=== PATIENT | female | born 1955 | race Caucasian/White ===

== ENCOUNTER 2016-08-17 07:10 | Inpatient (IN) | payer OTHER ==
[2016-08-11 09:07] VITALS: BMI 36.0
--- NOTE | 2016-08-11 09:32 | PAT Medication Instructions ---
Service Date Aug 11, 2016. 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
--- NOTE | 2016-08-11 10:07 | DIAGNOSTIC IMAGING REPORT ---
CHEST PREADMISSION(PA/LAT) CLINICAL HISTORY: PAT preoperative evaluation COMPARISON STUDY: No previous studies for comparison. FINDINGS: The bones soft tissues and hemidiaphragms are normal. The cardiomediastinal silhouette is normal. The lungs are clear. The pulmonary vasculature is normal. IMPRESSION: Negative chest. Electronically signed by: Karl Williamson M.D. 08/11/2016 10:05 AM Dictated Date/Time: 08/11/2016 10:04 AM
[2016-08-11 10:11] LABS: BASO % 0.7 %; BASO ABS # 0.04 K/uL (0-0.2); COMPLETE YES; EOS % 1.5 %; HEMATOCRIT 43.3 % (37-47); IG% 0.2 %; LYMPH % 34.2 %; LYMPH ABS # 1.87 K/uL (1.2-3.4); MEAN CELL VOLUME 89.5 fL (80-100); MEAN CORPUSCULAR HGB CONC 33.5 g/dl (32-36); MEAN PLATELET VOLUME 10.1 fL (7.4-10.4); MONO % 6.6 %; NEUT % 56.8 %; PLATELET COUNT 263 K/uL (130-400); RED BLOOD COUNT 4.84 M/uL (4.2-5.4); WHITE BLOOD COUNT 5.47 K/uL (4.8-10.8)
[2016-08-11 10:19] LABS: URINE APPEARANCE CLOUDY (CLEAR); URINE BILIRUBIN NEG (NEG); URINE COLOR DK YELLOW; URINE EPITHELIAL CELL AUTO >30 /lpf (0-5); URINE NITRITE NEG (NEG); URINE SPECIFIC GRAVITY 1.023 (1.000-1.030); UROBILINOGEN NEG (NEG)
[2016-08-11 10:22] LABS: MANUAL MICROSCOPIC REQUIRED? NO; REVIEW REQ? NO
[2016-08-11 10:27] LABS: ESTIMATED AVERAGE GLUCOSE 126 mg/dl; HA1C FLAG Normal (Normal)
[2016-08-11 10:31] LABS: PROTHROMBIN TIME (PATIENT) 11.2 SECONDS (9.0-12.0)
[2016-08-11 11:27] LABS: BUN/CREATININE RATIO 13.4 (10-20); CREATININE 0.96 mg/dl (0.60-1.20); POTASSIUM 3.5 mmol/L (3.5-5.1)
[2016-08-11 11:32] LABS: CALCIUM 9.3 mg/dl (8.5-10.1)
--- NOTE | 2016-08-16 10:34 | HISTORY & PHYSICAL EXAMINATION ---
DATE OF ADMISSION: 08/17/2016 CHIEF COMPLAINT: Right knee pain. HISTORY OF PRESENT ILLNESS: The patient is a 61-year-old female seen and evaluated in our office with end-stage right knee osteoarthritis. She has pain and disability with activities of daily living. She has pain with prolonged weightbearing and standing activities. She has difficulty with any kneeling, bending, or squatting activities. Due to ongoing pain and disability, she now desires to proceed with right total knee arthroplasty. PAST MEDICAL HISTORY: Hypertension and hyperlipidemia. PAST SURGICAL HISTORY: x3, carpal tunnel bilaterally, hysterectomy, bladder surgery, tonsils and adenoids. MEDICATIONS: Atorvastatin, calcium 20 mg daily, citalopram hydrobromide 10 mg daily, and losartan potassium daily/HCTZ 50/12.5 once daily. ALLERGIES: PENICILLIN AND WILFRID INHIBITORS. SOCIAL HISTORY AND REVIEW OF SYSTEMS: Noncontributory. PHYSICAL EXAMINATION: GENERAL: Well-nourished and well-developed female who appears her stated age. HEENT: Normocephalic and atraumatic. Extraocular movements intact. Oropharynx is pink and moist. NECK: Supple without adenopathy. LUNGS: Clear to auscultation bilaterally. HEART: Regular rate and rhythm. ABDOMEN: Soft, nontender, and nondistended. EXTREMITIES: The upper extremities are within normal limits. The right knee has a varus alignment. She complains primarily of medial compartment pain. Her range of motion is approximately 0-120 degrees. X-RAYS: X-rays were reviewed. She has a varus aligned knee. She has [id number] arthritis of the medial compartment with complete loss of the joint space. There is evidence of subchondral sclerosis. She also has moderate degenerative changes about the patellofemoral joint with large osteophytes. ASSESSMENT: Right knee degenerative joint disease. PLAN: Risks versus benefits were discussed. Consent was obtained. The patient's primary care physician is Dr. Joey Milian. We will proceed with right total knee arthroplasty upon preoperative workup and medical clearance.
[2016-08-17] VITALS (10 sets, daily range): BP systolic 102–142; BP diastolic 65–87; PULSE 68–79; TEMP 36.2–36.8; O2SAT 95–99; Ht 160 cm; Wt 93.9 kg
[~2016-08-17] VITALS: Ht 160 cm; Wt 93.9 kg
--- NOTE | 2016-08-17 07:09 | History & Physical Bridge Note ---
H&P Re-Evaluation Bridge Note: I have examined the patient, reviewed the History & Physical and in the interval since the performance of the History & Physical I have noted the following changes of clinical significance: No changes noted
[~2016-08-17 07:10] MED LIST: ACETAMINOPHEN 500 MG TAB PO SCH; ATOR-22 PO; BUPIVACAINE 0.25% 30 ML VIAL ONE; BUPIVACAINE 0.5 % 5 MG/1 ML PF 10ML VIAL ONE; CITA10TA8 PO; CeleBREX 200 MG CAP PO SCH; DEXAMETHASONE 4 MG TAB PO SCH; FAMOTIDINE 20 MG TAB PO SCH; GABAPENTIN 300 MG CAP PO SCH; LACTATED RINGER'S 1000ML 1,000 ML IV SCH; LACTATED RINGER'S 1000ML 500 ML IV ONE; LIDO4PAD3 TOP; LOSA100T2 PO; MENT4GEL TOP; METOCLOPRAMIDE HCL 10 MG TAB PO SCH; ROPIVACAINE 5MG/ML 30 ML 150 MG, BUPIVACAINE/EPINEPHR 0.5% MPF 30 ML, KETOROLAC TROMETH... INFIL SCH; TRANEXAMIC ACID INJ 1,000 MG in SODIUM CHLORIDE 0.9% 100ML 100 ML IV SCH
[2016-08-17] MEDS ORDERED: NURSING VERBAL MED ORDER STA (08:08)
[2016-08-17] MEDS ORDERED: CLINDAMYCIN 600 MG/54 ML D5W IV ONE (08:09)
[2016-08-17] MEDS ORDERED: MIDAZOLAM HCL 1 MG/ML 2ML VIAL ONE ×2 (08:18)
[2016-08-17] MEDS ORDERED: FENTANYL CITRATE INJ 50 MCG/1 ML 2 ML VIAL ONE (08:18)
[2016-08-17] MEDS ORDERED: POVIDONE-IODINE OP SOLN 30 ML BTL ONE (08:47)
[2016-08-17] MEDS ORDERED: BACITRACIN 50000 UNIT VIAL ONE (08:47)
[2016-08-17] MEDS ORDERED: ORTHO JOINT ANESTHETIC ONE (08:47)
[2016-08-17] MEDS ORDERED: LACTATED RINGER'S 1000ML 1,000 ML IV PRN (08:53)
[2016-08-17] MEDS ORDERED: FENTANYL CITRATE INJ 50 MCG/1 ML 2 ML VIAL IV PRN (09:00)
[2016-08-17] MEDS ORDERED: ONDANSETRON INJ 2 MG/ML 2 ML VIAL IV PRN ×2 (09:00→11:00)
[2016-08-17] MEDS ORDERED: PROPOFOL IV EMULSION 10 MG/ML 20 ML VIAL IV ONE (09:41)
[2016-08-17] MEDS ORDERED: LIDOCAINE HCL 2% 2 ML VIAL (20MG/ML) ONE (09:41)
--- NOTE | 2016-08-17 10:15 | [facility] Post Operative Brief Note ---
Immediate Operative Summary Operative Date Aug 17, 2016. Pre-Operative Diagnosis Left Knee Degenerative Joint Disease Post-Operative Diagnosis Same as preop Procedure(s) Performed Right Total Knee Arthroplasty Surgeon Dr. Pan Ophthalmic Photographer Surgeon(s) Raj Cameron PA-C Estimated Blood Loss 10cc Findings oa Specimens A. Right Knee Bone and Tissue Disposition Recovery Room / PACU
[2016-08-17] MEDS ORDERED: MoRPHine SULFATE 2 MG/ML CARP IV PRN ×2 (11:00→13:15)
[2016-08-17] MEDS ORDERED: MAGNESIUM HYDROXIDE SUSP 30 ML UDC PO PRN (11:00)
[2016-08-17] MEDS ORDERED: OXYCODONE HCL IR 5 MG TAB (IMMEDIATE RELEASE) PO PRN (11:00)
[2016-08-17] MEDS ORDERED: ALUMINUM/MAGNESIUM/SIMETH (MAALOX MAX) 30 ML UDC PO PRN (11:00)
[2016-08-17] MEDS ORDERED: ZOLPIDEM TARTRATE 5 MG TAB PO PRN (11:00)
[2016-08-17] MEDS ORDERED: METOCLOPRAMIDE HCL INJ 5 MG/ML 2 ML VIAL IV PRN (11:00)
--- NOTE | 2016-08-17 11:28 | DIAGNOSTIC IMAGING REPORT ---
RIGHT KNEE 1 OR 2 VIEWS ROUTINE CLINICAL HISTORY: Degenerative arthritis COMPARISON: None. DISCUSSION: There are postsurgical changes of a total right knee arthroplasty and patellar resurfacing. No acute fractures are visualized. There is an overlying surgical drain. There is air within soft tissues consistent with history of recent surgery. The tibial spike abuts the inner aspect of the lateral tibial cortex. IMPRESSION: Postsurgical changes of a total right knee arthroplasty. Electronically signed by: Sam Melton M.D. 08/17/2016 11:27 AM Dictated Date/Time: 08/17/2016 11:26 AM
--- NOTE | 2016-08-17 12:28 | Anesthesiology Progress Note ---
Anesthesia Post Op Note Date & Time Aug 17, 2016 at 12:28 Vital Signs Pain Intensity: 0.0 Vital Signs Past 12 Hours Date Time Temp Pulse Resp B/P (MAP) Pulse Ox O2 Delivery O2 Flow Rate FiO2 08/17/16 12:00 98 Nasal Cannula 2.0 08/17/16 12:00 98 Nasal Cannula 2.0 08/17/16 11:50 36.4 78 16 111/79 100 Nasal Cannula 2 08/17/16 11:35 80 16 107/77 100 Nasal Cannula 2 08/17/16 11:25 82 14 111/82 100 Nasal Cannula 2 08/17/16 11:15 75 13 106/75 100 Mask 8 08/17/16 11:05 76 14 98/71 100 Mask 8 08/17/16 10:59 36 83 16 115/77 100 Mask 8 08/17/16 08:11 36.8 68 20 142/87 95 Room Air Notes Mental Status: alert / awake / arousable, participated in evaluation Pt Amnestic to Procedure: Yes Nausea / Vomiting: adequately controlled Pain: adequately controlled Airway Patency, RR, SpO2: stable & adequate BP & HR: stable & adequate Hydration State: stable & adequate Neuraxial Anesthesia: was administered, sensory block is resolving Anesthetic Complications: no major complications apparent Pt did very well.
--- NOTE | 2016-08-17 12:29 | OPERATIVE REPORT ---
DATE OF OPERATION: 08/17/2016 PREOPERATIVE DIAGNOSIS: Osteoarthritis right knee. POSTOPERATIVE DIAGNOSIS: Osteoarthritis right knee. PROCEDURE: Right total knee arthroplasty. SURGEON: Dr. Pan. MUD CAR WORKER: Raj Cameron PA-C ANESTHESIA: Spinal. COMPLICATIONS: None. IMPLANTS: Femoral size 4, tibia size 3, tibial poly 16, and patella size 33. OPERATION AND FINDINGS: Following induction of spinal anesthesia, the patient's right leg was prepped and draped in the usual sterile manner. Limb was exsanguinated with an Esmarch bandage and tourniquet was inflated to 350 mmHg. A longitudinal incision was made anteriorly. Subcutaneous tissue was sharply dissected. Electrocautery was used for hemostasis. Prepatellar bursa was incised and median parapatellar incision was performed. Patella was everted and the knee was flexed. Fat pad was removed to aid in visualization and the anterior and posterior cruciate ligaments were removed. The medial face of the tibia was cleared of soft tissue first with a Bovie and a Cho elevator. This tissue was retracted posteriorly using a blunt Hohmann. A Renteria retractor was used to expose the synovium above on the anterior aspect of the femur and this was removed down to bone. The PSI guide was placed on the distal femur and two pins were placed anteriorly and kept in position and two additional pins were placed distally and removed. The distal femoral cutting block was placed in position and the distal femoral cut was used in the +0 setting. Next, the cutting block was removed and the femoral block was placed in the distal end of the femur. Care was taken to ensure appropriate external rotation and feeler gauge was used to ensure no notching would occur. The femoral block was centered on the distal femur and in the medial and lateral direction and was fixed using two bone screws. The gold pins were then removed. The oscillating saw was used to create the bone cuts and the distal femoral cutting block was removed and the reciprocating saw was used to further trim the femoral cuts as well as a deep in the area for the trochlear groove. Next, posterior condyle remnants were removed. Following this, a meniscal clamp and knife were utilized to remove the anterior portion of both medial and lateral meniscus. The proximal tibia PSI guide was placed into position and the proximal tibial cutting guide was screwed into position. The extra medullary alignment guide was utilized to ensure appropriate alignment. The proximal tibia was cut and the proximal tibial cutting block was removed and this bone fragment was removed. The appropriate guide was used to perform the notch cut on the distal femur and a lamina journalist and a cochlear knife were utilized to finish both medial and lateral meniscectomies to remove any remnants of the posterior or anterior cruciate ligaments. Following this, the distal femoral component was impacted into position and blunt Rossana was used to sublux the tibia anteriorly. The proximal tibia was sized and a 3 tibial tray was chosen as the size to be used. This was put into position and appropriate external rotation and a double check with extramedullary alignment guide was performed. The canal for the tibial stem was prepared first with a 17 mm drill and then the punch and a mallet and the trial tibial poly was placed. A size 16 was chosen the size to be used. It was brought to extension and the patella was prepared with the patellar reamer. A 33 component was chosen the size to be used. The trial component was placed and knee was taken through a full range of motion and there was found to be no lateral subluxation of the tibia. No lateral release was required. The trials were all removed. The final components were obtained and assembled. Cement was mixed. The knee was thoroughly irrigated and the ortho mix was injected about the knee joint. The final components were cemented into position. After thoroughly suctioning and drying the bone ends, all excess cement was removed. The knee was held in extension while the cement hardened. The wound was irrigated and closed over a Hemovac drain. #1 Vicryl was used to close the extensor mechanism. Subcutaneous tissues closed using 0 Dexon. Skin was closed with phoenix. Sterile dressing of Adaptic, 4 x 4s, sterile Webril, and Junior was applied. The patient tolerated the procedure well. Due to the complex nature of the procedure, the entire surgery was performed with the operational assistance of Raj Cameron PA-C. The accountant assistant, under direct supervision, was involved in the actual performance of all aspects of the surgical procedure including hemostasis, tissue retraction and incision, instrument management, patient positioning, and wound closure. I attest to the content of the Intraoperative Record and any orders documented therein. Any exception s are noted below.
[2016-08-17] MEDS ORDERED: MoRPHine SULFATE 10 MG/ML CARP/VIAL IV PRN (13:15)
[2016-08-17] MEDS ORDERED: MoRPHine SULFATE 4 MG/ML 1 ML CARP\\VIAL IV PRN (13:15)
[2016-08-17] MEDS: D5W AND 1/2NSS + 20MEQ KCL 1,000 ML IV SCH ×2 (13:46→23:31)
[2016-08-17] MEDS: ACETAMINOPHEN 500 MG TAB PO SCH ×2 (13:46→21:08)
[2016-08-17] MEDS: FERROUS GLUCONATE 324 MG TAB PO SCH (18:25)
[2016-08-17] MEDS: KETOROLAC TROMETHAMINE 30 MG/ML VIAL IV. SCH ×2 (18:26→23:31)
[2016-08-17] MEDS: CLINDAMYCIN IV 600 MG in DEXTROSE 5% 50ML 50 ML IV SCH (18:43)
[2016-08-17] MEDS: ASPIRIN 81 MG ECTAB PO SCH (20:58)
[2016-08-17] MEDS: DOCUSATE SODIUM 100 MG CAP PO SCH (20:59)
[2016-08-17] MEDS: LOSARTAN POTASSIUM 50 MG TAB PO SCH (21:00)
[2016-08-17] MEDS: ATORVASTATIN 20 MG TAB PO SCH (21:01)
[2016-08-17] MEDS: HYDROCHLOROTHIAZIDE 25 MG TAB PO SCH (21:09)
[2016-08-17] MEDS: CITALOPRAM 20 MG TAB PO SCH (21:09)
[2016-08-17] MEDS: OXYCODONE HCL 10 MG TABCR (OXYCONTIN) PO SCH (21:16)
[2016-08-18] MEDS: CLINDAMYCIN IV 600 MG in DEXTROSE 5% 50ML 50 ML IV SCH (02:08)
[2016-08-18 03:12] VITALS: BP 105/68; PULSE 59; TEMP 36.7; O2SAT 96
[2016-08-18] MEDS: KETOROLAC TROMETHAMINE 30 MG/ML VIAL IV. SCH ×2 (05:35→11:50)
[2016-08-18] MEDS: ACETAMINOPHEN 500 MG TAB PO SCH ×3 (05:35→21:19)
[2016-08-18 06:54] LABS: HEMATOCRIT 32.9 % (37-47); MEAN CELL VOLUME 89.6 fL (80-100); MEAN CORPUSCULAR HEMOGLOBIN 30.5 pg (25-34); MEAN PLATELET VOLUME 10.6 fL (7.4-10.4); PLATELET COUNT 186 K/uL (130-400); RED BLOOD COUNT 3.67 M/uL (4.2-5.4); WHITE BLOOD COUNT 13.59 K/uL (4.8-10.8)
[2016-08-18 06:59] VITALS: BP 106/65; PULSE 69; TEMP 36.6; O2SAT 97
[2016-08-18 07:25] LABS: BUN/CREATININE RATIO 14.7 (10-20); CALCIUM 8.4 mg/dl (8.5-10.1); CREATININE 0.91 mg/dl (0.60-1.20); POTASSIUM 4.3 mmol/L (3.5-5.1)
[2016-08-18] MEDS ORDERED: DEXAMETHASONE INJ 10 MG in SYRINGE 0 ML IV SCH (07:30)
--- NOTE | 2016-08-18 08:02 | Orthopedic Progress Note ---
Orthopedic Progress Note Date of Service Aug 18, 2016. Subjective Post OP Day: 1 Reports: feeling well Objective N/V intact, dressing C/D/I (Hemovac d/c'd), toes mobile Date Time Temp Pulse Resp B/P (MAP) Pulse Ox O2 Delivery O2 Flow Rate FiO2 08/18/16 07:20 Room Air 08/18/16 06:59 36.6 69 19 106/65 (79) 97 Room Air 08/18/16 03:12 36.7 59 16 105/68 (80) 96 Room Air 08/17/16 23:39 Room Air 08/17/16 23:08 36.7 71 18 102/66 (78) 95 Room Air 08/17/16 21:07 79 110/65 (80) 08/17/16 19:41 36.6 79 16 103/69 (80) 95 Room Air 08/17/16 16:00 Room Air 08/17/16 15:27 36.7 71 16 108/69 (82) 96 Room Air 08/17/16 15:00 36.7 71 19 111/73 (86) 96 Nasal Cannula 2.0 08/17/16 14:05 36.2 77 19 103/66 (78) 99 Nasal Cannula 2.0 08/17/16 13:04 36.4 77 19 108/76 (87) 99 Nasal Cannula 2.0 08/17/16 12:29 75 17 106/69 (81) 97 Nasal Cannula 2.0 08/17/16 12:00 98 Nasal Cannula 2.0 08/17/16 12:00 98 Nasal Cannula 2.0 08/17/16 11:50 36.4 78 16 111/79 100 Nasal Cannula 2 08/17/16 11:35 80 16 107/77 100 Nasal Cannula 2 08/17/16 11:25 82 14 111/82 100 Nasal Cannula 2 08/17/16 11:15 75 13 106/75 100 Mask 8 08/17/16 11:05 76 14 98/71 100 Mask 8 08/17/16 10:59 36 83 16 115/77 100 Mask 8 08/17/16 08:11 36.8 68 20 142/87 95 Room Air Laboratory Results 24 Hours: Test 08/18/16 06:15 Hematocrit 32.9 % Hemoglobin 11.2 g/dL Assessment & Plan Assessment: 61 yo female stable POD #1 s/p right TKA Plan: 1. DVT prophylaxis- ASA, SCDs 2. PT/OT 3. D/C planning- home w/ OPPT
--- NOTE | 2016-08-18 08:04 | Discharge Instructions ---
Discharge Instructions Date of Service Aug 18, 2016. Admission Reason for Admission: Right Knee Osteoarthritis Discharge Discharge Diagnosis / Problem: Right knee arthritis Discharge Goals Goal(s): Decrease discomfort, Improve function Activity Recommendations Activity Limitations: as noted below Weightbearing Status: Right weightbearing (as tolerated) . Instructions / Follow-Up Instructions / Follow-Up ACTIVITY RECOMMENDATIONS: SELF CARE INSTRUCTIONS AFTER TOTAL KNEE REPLACEMENT A. You may need to continue a physical therapy program after discharge from the hospital. There are several options available to you. Your doctor will assist you in selecting the best one for you. 1. An out-patient facility 2 to 3 times a week for therapy or home therapy. 2. Continue working on all exercises taught to you in the hospital. Your goals should be to increase bending of your knee to 90 degrees and beyond and to fully straighten your knee. B. You may progress at your own pace from walking with a walker or crutches to a cane; then to no assistive devices. C. Make walking a part of your daily routine. Be up as much as comfortable with rest periods throughout the day. Rest with leg elevation is very important. Use the ice wrap frequently for the first 3-4 weeks. D. There are no restrictions on activities. You may ride in a car, shop, participate in spring tacker and all social activities. E. Wear the long elastic stockings (NELSON hose) 20 hours a day for 2 weeks after surgery. They can be removed several times a day for laundering and for a bath. F. You may shower, no tub baths until cleared by your doctor. SPECIAL CARE INSTRUCTIONS: VERY IMPORTANT TO READ AND REVIEW A. There are a few signs you need to watch for after you are home. Call [facility] if you notice any of the followin. Increased severe knee pain. Some pain is expected especially when you exercise. 2. Increased swelling in your leg or knee; pain or swelling of the calf muscle in either lower leg. 3. Any fluid drainage from the incision. 4. Shortness of breath or chest pain. B. Please call [facility] at if you have any concerns or questions about your operation or recovery. The doctor or his nurse will return your call promptly. C. You must take antibiotics before dental work, bladder, bowel or other surgery. Your doctor will provide you with a permanent care to carry describing this precaution. IMPORTANT: * REMEMBER TO TAKE ASPIRIN, 81 MG, TWICE DAILY FOR 4 WEEKS UNLESS OTHERWISE DIRECTED. THIS IS YOUR BLOOD THINNER. * HIGH RISK PATIENTS MAY BE PRESCRIBED A STRONGER BLOOD THINNER. THIS WILL BE PROVIDED AT DISCHARGE. * CALL IF INCREASED PAIN, REDNESS, DRAINAGE OR FEVER GREATER THAT 101. * WEAR NELSON HOSE 20 HOURS PER DAY FOR 2 WEEKS. Silverlon- This is a large adhesive bandage that contains silver ions. This helps your incision heal by fighting off bacteria and protecting it from the outside environment. You are permitted to shower with this dressing. This will remain on your incision for 7 days and then should be removed. Some visible blood or drainage through the dressing window is normal. If there is significant drainage or leaking noted before the 7 days notify your doctor's office immediately. Once removed, keep incision clean and dry. If there is any drainage or redness noted, please call your surgeon. FOLLOW UP VISIT: If appointment is not already scheduled: Please call [facility] to make a follow-up appointment for 2 weeks after your surgery at . Current Hospital Diet Patient's current hospital diet: Regular Diet Discharge Diet Recommended Diet: Regular Diet Procedures Procedures Performed: Right Total Knee Arthroplasty Pending Studies Studies pending at discharge: no Laboratory Results Hemoglobin A1c Test 08/11/16 09:37 Range/Units Estimated Average Glucose 126 mg/dl Hemoglobin A1c 6.0 H 4.5-5.6 % Medical Emergencies . Who to Call and When: Medical Emergencies: If at any time you feel your situation is an emergency, please call 911 immediately. . Non-Emergent Contact Non-Emergency issues call your: Surgeon Call Non-Emergent contact if: temperature is above 101.5, your pain is not controlled, wound has increased drainage, wound has increased redness . "Provider Documentation" section prepared by Raj Cameron PA-C. . VTE Core Measure Inpt VTE Proph given/why not?: Other Anticoagulation (ASA 81mg bid), T.E.D. Stockings, SCD's [place] Drug Monitoring Program Search Results: patient reviewed within database, no issues identified
--- NOTE | 2016-08-18 08:48 | Anesthesiology Progress Note ---
Anesthesia Post Op Note Date & Time Aug 18, 2016 at 08:48 Vital Signs Pain Intensity: 0.0 Vital Signs Past 12 Hours Date Time Temp Pulse Resp B/P (MAP) Pulse Ox O2 Delivery O2 Flow Rate FiO2 08/18/16 07:20 Room Air 08/18/16 06:59 36.6 69 19 106/65 (79) 97 Room Air 08/18/16 03:12 36.7 59 16 105/68 (80) 96 Room Air 08/17/16 23:39 Room Air 08/17/16 23:08 36.7 71 18 102/66 (78) 95 Room Air 08/17/16 21:07 79 110/65 (80) Notes Mental Status: alert / awake / arousable, participated in evaluation Pt Amnestic to Procedure: Yes Nausea / Vomiting: adequately controlled Pain: adequately controlled Airway Patency, RR, SpO2: stable & adequate BP & HR: stable & adequate Hydration State: stable & adequate Anesthetic Complications: no major complications apparent
[2016-08-18] MEDS: ASPIRIN 81 MG ECTAB PO SCH ×2 (08:54→21:14)
[2016-08-18] MEDS: PANTOprazole SOD 40 MG TAB PO SCH (08:54)
[2016-08-18] MEDS: FERROUS GLUCONATE 324 MG TAB PO SCH ×3 (08:54→18:12)
[2016-08-18] MEDS: OXYCODONE HCL 10 MG TABCR (OXYCONTIN) PO SCH ×2 (08:54→21:14)
[2016-08-18] MEDS: DOCUSATE SODIUM 100 MG CAP PO SCH ×2 (08:54→21:15)
[2016-08-18] MEDS: MULTIVITAMIN TAB PO SCH (08:55)
[2016-08-18 10:50] VITALS: BP 110/68; PULSE 70; TEMP 36.9; O2SAT 97
[2016-08-18 15:12] VITALS: BP 101/62; PULSE 64; TEMP 36.9; O2SAT 97
[2016-08-18] MEDS: CeleBREX 200 MG CAP PO SCH (21:13)
[2016-08-18] MEDS: HYDROCHLOROTHIAZIDE 25 MG TAB PO SCH (21:15)
[2016-08-18] MEDS: ATORVASTATIN 20 MG TAB PO SCH (21:15)
[2016-08-18] MEDS: CITALOPRAM 20 MG TAB PO SCH (21:16)
[2016-08-18] MEDS: LOSARTAN POTASSIUM 50 MG TAB PO SCH (21:16)
[2016-08-18 22:56] VITALS: BP 113/74; PULSE 64; TEMP 36.7; O2SAT 98
[2016-08-19] MEDS: ACETAMINOPHEN 500 MG TAB PO SCH (06:21)
[2016-08-19 06:51] VITALS: BP 131/81; PULSE 54; TEMP 36.5; O2SAT 97
[2016-08-19] MEDS: ASPIRIN 81 MG ECTAB PO SCH (07:30)
[2016-08-19] MEDS: DOCUSATE SODIUM 100 MG CAP PO SCH (07:30)
[2016-08-19] MEDS: CeleBREX 200 MG CAP PO SCH (07:30)
[2016-08-19] MEDS: FERROUS GLUCONATE 324 MG TAB PO SCH ×2 (07:30→12:30)
[2016-08-19] MEDS: MULTIVITAMIN TAB PO SCH (07:31)
[2016-08-19] MEDS: PANTOprazole SOD 40 MG TAB PO SCH (07:31)
[2016-08-19] MEDS: OXYCODONE HCL 10 MG TABCR (OXYCONTIN) PO SCH (07:31)
[2016-08-19 10:54] VITALS: BP 131/81; PULSE 54; TEMP 36.5; O2SAT 97
[2016-08-19] MEDS ORDERED: RXC5 PO (11:59)
[2016-08-19] MEDS ORDERED: ACET-24 PO (11:59)
[2016-08-19] MEDS ORDERED: ASPEC81 PO (11:59)
[2016-08-19] MEDS ORDERED: CLB200 PO (11:59)
[2016-08-19] MEDS ORDERED: OXYSR10 PO (11:59)
[2016-08-19] MEDS ORDERED: ONDA8TAB6 PO (11:59)
--- NOTE | 2016-08-19 12:12 | Orthopedic Progress Note ---
Orthopedic Progress Note Date of Service Aug 19, 2016. Subjective Reports: feeling well, pain controlled w PO medications, Denies: complaints, chest pain, SOB, nausea / vomiting, light headedness, calf pain Objective calves soft nontender, N/V intact, capillary refill less than 2 sec., dressing C /D/I, A&O x3 Right knee with decreased edema. Rossana test negative. AROM WNL Date Time Temp Pulse Resp B/P (MAP) Pulse Ox O2 Delivery O2 Flow Rate FiO2 08/19/16 10:54 36.5 54 16 97 Room Air 08/19/16 07:25 Room Air 08/19/16 06:51 36.5 54 16 131/81 (98) 97 Room Air 08/18/16 23:52 Room Air 08/18/16 22:56 36.7 64 16 113/74 (87) 98 Room Air 08/18/16 15:45 Room Air 08/18/16 15:12 36.9 64 18 101/62 (75) 97 Room Air Assessment & Plan Assessment: 61 yo female stable POD #2 s/p right TKA Plan: 1. DVT prophylaxis- ASA, TEDs 2. PT/OT 3. D/C planning- home w/ OPPT 4. F/U in clinic 2 weeks
--- NOTE | 2016-08-30 17:06 | Discharge Summary ---
Orthopedic Discharge Summary Admission Date/Reason Aug 17, 2016 at 11:04 Right Knee Osteoarthritis. Discharge Date/Disposition Aug 19, 2016 Home Diagnosis Principal Diagnosis: Right knee arthritis Procedure(s) Performed Right total knee arthroplasty Medication Reconciliation New Medications: Ondansetron Hcl (Zofran) 8 Mg Tab 8 MG PO Q8 PRN for Nausea, #20 TAB Acetaminophen (Sb Non-Aspirin Extra Stre) 500 Mg Tab 1000 MG PO Q8, #120 TAB Aspirin (Aspirin EC Low Dose) 81 Mg Ectab 81 MG PO BID for 30 Days Celecoxib (Celebrex) 200 Mg Cap 200 MG PO BID, #60 CAP Oxycodone HCl (Oxycontin) 10 Mg Tabcr 10 MG PO Q12, #20 Oxycodone HCl (Oxycodone HCl) 5 Mg Tab 5-10 MG PO Q4H PRN for Pain, #60 TAB Continued Medications: Atorvastatin (Lipitor) 20 Mg Tab 20 MG PO HS, TAB Citalopram Hydrobromide (Celexa) 10 Mg Tab 10 MG PO HS, TAB Lidocaine (Aspercreme Lidocaine Max) 4 % Pad 1 DOSE TOP PRN Losartan Potassium & Hydrochlo (Hyzaar) 1 Tab Tab 1 TAB PO HS for 90 Days, TAB 3 Refills 100/12.5 MG Menthol (Topical Analgesic) (Biofreeze) 4 % Gel 1 DOSE 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 Hospital Course Pt underwent right TKA without complication. Post-op pain wel controlled with combination of spinal anesthesia, adductor canal block, intra-op joint injection , IV, and oral pain medications. Pt was started on Aspirin for DVT prophylaxis. H/H was stable and did not require transfusion. Drain was discontinued on post-op day #1, dressing will remain in place for 1 week. Pt tolerated PT well and was discharged home on POD #2 with OPPT. She will follow- up in 10-14 days for initial post-op evaluation. Discharge Instructions Please refer to the electronic Patient Visit Report (Discharge Instructions) for additional information.
== END 2016-08-19 13:16 | disposition home or self-care (01) | DRG 470 ==
LOC: C.ACU 07:10 → C.MSW 11:04 → ENRESERV 11:35
PROC: 0SRC0J9 Replacement of Right Knee Joint with Synthetic Substitute, Cemented, Open Approach (ICD-10-PCS; principal; 2016-08-17 09:45)
DX: M17.11 Unilateral primary osteoarthritis, right knee (principal); I10 Essential (primary) hypertension; E78.5 Hyperlipidemia, unspecified; Z79.899 Other long term (current) drug therapy

== ENCOUNTER → 2016-11-02 | Outpatient (CLI) | payer OTHER ==
[~2016-11-02] MED LIST changes: +ACET-24 PO; -ACETAMINOPHEN 500 MG TAB PO SCH; +ASPEC81 PO; -BUPIVACAINE 0.25% 30 ML VIAL ONE; -BUPIVACAINE 0.5 % 5 MG/1 ML PF 10ML VIAL ONE; +CLB200 PO; -CeleBREX 200 MG CAP PO SCH; -DEXAMETHASONE 4 MG TAB PO SCH; -FAMOTIDINE 20 MG TAB PO SCH; -GABAPENTIN 300 MG CAP PO SCH; -LACTATED RINGER'S 1000ML 1,000 ML IV SCH; -LACTATED RINGER'S 1000ML 500 ML IV ONE; -METOCLOPRAMIDE HCL 10 MG TAB PO SCH; +ONDA8TAB6 PO; +OXYSR10 PO; -ROPIVACAINE 5MG/ML 30 ML 150 MG, BUPIVACAINE/EPINEPHR 0.5% MPF 30 ML, KETOROLAC TROMETH... INFIL SCH; +RXC5 PO; -TRANEXAMIC ACID INJ 1,000 MG in SODIUM CHLORIDE 0.9% 100ML 100 ML IV SCH
--- NOTE | 2016-11-02 15:39 | MAMMOGRAPHY REPORT ---
BILATERAL DIGITAL SCREENING MAMMOGRAM WITH CAD: 11/02/2016 CLINICAL HISTORY: Routine screening. TECHNIQUE: Current study was also evaluated with a Computer Aided Detection (CAD) system. Bilateral CC and MLO views were obtained. COMPARISON: Comparison is made to exams dated: 09/23/2015 mammogram, 11/09/2010 mammogram, 11/08/2009 ammogram [facility], and 08/08/2007. BREAST COMPOSITION: There are scattered areas of fibroglandular density in both breasts. FINDINGS: No suspicious masses, calcifications, or areas of architectural distortion are noted in ei ther breast. There has been no significant interval change compared to prior exams. IMPRESSION: ACR BI-RADS CATEGORY 1: NEGATIVE There is no mammographic evidence of malignancy. A 1 year screening mammogram is recommended. The pa tient will receive written notification of the results. Approximately 10% of breast cancers are not detected with mammography. A negative mammographic report should not delay biopsy if a clinically suggestive mass is present. Misti Xiong M.D. ah/:11/02/2016 15:09:07 Restaurant Hostess: Josie Garcia RT(R)(M), [facility] letter sent: Normal 1/2 BI-RADS Code: ACR BI-RADS Category 1: Negative
== END | disposition home or self-care (01) ==
LOC: C.MAMM 13:36
PROVIDERS: ATTEND Family Medicine
DX: Z12.31 Encounter for screening mammogram for malignant neoplasm of breast (principal)

== ENCOUNTER 2018-11-26 06:42 | Inpatient (IN) ==
--- NOTE | 2018-10-31 14:30 | Anesthesiology Consultation ---
Date of Service October 31, 2018 Assessment & Plan (1) Encounter for pre-operative examination: Chart Review Chart Review: Acceptable Risk for Surgery (pending surgeon-ordered PCP clearance (Dr. Milian; [facility])) and Patient seen in Pre Admission Testing Teaching & Discussion Pre-Anesthesia Teaching/Discussion Notes: Instructed NPO after midnight before surgery,except medications with 15 cc of water. Medication instructions provided according to the PAT guidelines. History Surgery Operation Date: 08/05/18 11:30 Proposed Procedures p Left Total Knee Arthroplasty - Estuardo Lilly DO Operation Date: 11/26/18 11:35 Proposed Procedures p Left Total Knee Arthroplasty - Estuardo Lilly, DO Height/Weight Height: 5 ft 2 in Weight: 96.2 kg Allergies Allergy/AdvReac Type Severity Reaction Status Date / Time Penicillins Allergy Mild RASH and Verified 10/23/18 08:10 ITCHING Medications Home Medications Medication Instructions Recorded Confirmed Last Taken atorvastatin 20 mg PO HS 10/23/18 10/23/18 Unknown citalopram 10 mg PO HS 10/23/18 10/23/18 Unknown losartan-hydrochlorothiazide 1 tab PO HS 10/23/18 10/23/18 Unknown magnesium 250 mg PO 3XWK 10/23/18 10/23/18 Unknown Past Medical History Medical History Anxiety Depression History of thoracic outlet syndrome left- LUE limb restriction Hyperlipidemia Hypertension Kidney stones Obesity Osteoarthritis Restless leg syndrome Exercise / Class Metabolic Activity II 4-5 Yardwork/Stairs/Walk up hill Past Family History Family History Mother Family history of diabetes mellitus Father Family history of diabetes mellitus Grandfather Family history of diabetes mellitus Grandmother Family history of diabetes mellitus Brother Family history of diabetes mellitus Past Surgical History Surgical History H/O total hysterectomy History of bilateral tubal ligation History of bladder surgery BLADDER TACK History of carpal tunnel release RT/LEFT History of section X 3 History of colonoscopy History of eyelid surgery WATER BLISTERS REMOVED History of tonsillectomy and adenoidectomy History of tooth extraction History of total knee replacement RIGHT Past Anesthesia History No Hx of Anesthesia Complications and No Family Hx of Anesthesia Complications History of PONV No Hx of PONV and No Hx of Motion Sickness Social History Smoking Status: Never smoker Do You Dip or Chew Tobacco: No Hx Alcohol Use: No Hx Substance Use: No substance use type: does not use Review of Systems Patient denies chest pain, shortness of breath, dyspnea on exertion, cough, wheezing, palpitations. Physical Exam Vital Signs VITALS BP 108/75 P 73 TEMP 98.7 SP02 96%RA RESP 18 PHYSICAL Full neck and c-spine range of motion. Full TMJ range of motion. TMD 3.5 finger breaths Mallampati Score 3 Dentition: full dentures upper/lower; edentulous Lungs: clear throughout to auscultation Cardiac: regular rate and rhythm, no murmurs noted Spine: normal Carotid arteries: negative bruit Extremities: no edema Short, thick neck Testing Laboratory Results 10/31/18 14:39 10/31/18 14:39 PT 10.9 Seconds (9.0-12.0) 10/31/18 14:39 INR 1.1 (0.9-1.1) 10/31/18 14:39 APTT 24.2 Seconds (21.0-31.0) 10/31/18 14:39 Hemoglobin A1c 5.9 % (4.5-5.6) H 10/31/18 14:39 Urine Color Yellow 10/31/18 14:39 Urine Appearance Clear (Clear) 10/31/18 14:39 Urine pH 5.0 (4.5-7.5) 10/31/18 14:39 Ur Specific [place] 1.013 (1.000-1.030) 10/31/18 14:39 Urine Protein Negative (Negative) 10/31/18 14:39 Urine Glucose (UA) Negative (Negative) 10/31/18 14:39 Urine Ketones Negative (Negative) 10/31/18 14:39 Urine Nitrite Negative (Negative) 10/31/18 14:39 Ur Leukocyte Esterase Negative (Negative) 10/31/18 14:39 Blood Type AB Positive 10/31/18 14:39 Antibody Screen NEGATIVE 10/31/18 14:39 Electrocardiogram Date: 10/31/18 NSR at 69bpm. Cannot rule out inferior infarct (no significant change compared to 08/11/16 per cardio) Chest X-Ray Date: 10/31/18 Findings: + NAD
--- NOTE | 2018-10-31 14:34 | PAT Medication Instructions ---
Medication Instructions Date of Service October 31, 2018 Home Medications atorvastatin 20 mg PO HS citalopram 10 mg PO HS losartan-hydrochlorothiazide 1 tab PO HS magnesium 250 mg PO 3XWK Take evening before surgery atorvastatin 20 mg PO HS citalopram 10 mg PO HS losartan-hydrochlorothiazide 1 tab PO HS magnesium 250 mg PO 3XWK Other Notes If you have any questions please call us at [phone] or [phone] or [phone] or [phone]
--- NOTE | 2018-10-31 15:12 | XRay Report ---
TWO VIEW CHEST CLINICAL HISTORY: Preoperative examination. FINDINGS: PA and lateral chest radiographs are compared to study dated 08/11/2016. The cardiomediastin al silhouette is unremarkable. The lungs and pleural spaces are clear. There is no pneumothorax. The skeletal structures are osteopenic. The bony thorax appears intact. IMPRESSION: No active disease in the chest. Electronically signed by: Mehran Gardner M.D. 10/31/2018 3:10 PM
[2018-10-31 16:30] LABS: Basophils # (auto) 0.01 K/uL (0-0.2); Basophils % (auto) 0.2 %; Eosinophils # (auto) 0.08 K/uL (0-0.5); Eosinophils % (auto) 1.7 %; Hematocrit (blood only) 40.2 % (37-47); Hemoglobin 13.8 g/dL (12.0-16.0); Lymphocytes # (auto) 1.34 K/uL (1.2-3.4); Lymphocytes % (auto) 27.9 %; Mean Corpuscular Hemoglobin 30.7 pg (25-34); Mean Corpuscular Hgb Conc 34.3 g/dL (32-36); Mean Corpuscular Volume 89.5 fL (80-100); Mean Platelet Volume 10.4 fL (7.4-10.4); Monocytes # (auto) 0.47 K/uL (0.11-0.59); Monocytes % (auto) 9.8 %; Neutrophils % (auto) 60.4 %; Platelet Count 225 K/uL (130-400); RDW Coefficient of Variation 12.9 % (11.5-14.5); RDW Standard Deviation 42.4 fL (36.4-46.3); Red Blood Count 4.49 M/uL (4.2-5.4)
[2018-10-31 16:35] LABS: Appearance Urine Clear (Clear); Bilirubin Urine Negative (Negative); Blood Urine Negative (Negative); Color Urine Yellow; Glucose Urine UA Negative (Negative); Ketones Urine Negative (Negative); Leukocyte Esterase Urine Negative (Negative); Nitrite Urine Negative (Negative); Protein Urine Negative (Negative); Specific Gravity Urine 1.013 (1.000-1.030); Urobilinogen Urine Negative (Negative)
[2018-10-31 16:41] LABS: Albumin Level 3.8 gm/dl (3.4-5.0); BUN Creatinine Ratio 13.8 (10-20); Creatinine Clr Calc Pharmacy 65.4 ml/min; Est GFR (African American) 74.3; Est GFR (Non-African American) 64.1; Potassium 3.5 mmol/L (3.5-5.1)
[2018-10-31 16:43] LABS: INR 1.1 (0.9-1.1); Partial Thromboplastin Ratio 0.9; Partial Thromboplastin Time 24.2 Seconds (21.0-31.0); Prothrombin Time 10.9 Seconds (9.0-12.0)
[2018-11-01 05:38] LABS: Estimated Average Glucose 123 mg/dl; Hemoglobin A1C 5.9 % (4.5-5.6)
--- NOTE | 2018-11-25 14:55 | History & Physical Report ---
Date of Service November 25, 2018 Assessment & Plan (1) Degenerative joint disease of left knee: I have indicated the patient for left total knee replacement. The risks, benefits and complications of surgery were explained to the patient which include but not limited to infection, acute blood loss, DVT/PE, injury to nerves, vessels, bone, soft tissue, arthrofibrosis, chronic pain, failure of the prosthesis, knee dislocation, leg length discrepancy, need for additional surgery, cardiac and pulmonary events and . The patient wished to proceed with surgery and informed consent was obtained at this time. We will plan for ASA BID post-operatively for DVT prophylaxis. Upon discharge the patient will be discharged home with home health services. Appropriate clearances by PCP were obtained. History of Present Illness Chief Complaint: Left knee pain/djd Primary Care Provider: Joey Milian MD The patient is a 63 year old female who presents with complaints of severe left knee pain and DJD. The patient has failed outpatient conservative treatments to this point which included NSAIDs, IA corticosteroid injection, bracing, home exercise/walking program. The patient's pain and limited function have progressed to the point where they severely hinder their activities of daily living and they no longer tolerate exercise programs. They are requesting to proceed with total knee replacement surgery. Allergies Allergy/AdvReac Type Severity Reaction Status Date / Time Penicillins Allergy Mild RASH and Verified 10/23/18 08:10 ITCHING Home Medications Home Medications Medication Instructions Recorded Confirmed Type atorvastatin 20 mg PO HS 10/23/18 10/23/18 History citalopram 10 mg PO HS 10/23/18 10/23/18 History losartan-hydrochlorothiazide 1 tab PO HS 10/23/18 10/23/18 History magnesium 250 mg PO 3XWK 10/23/18 10/23/18 History Past Med/Surg History Medical History Anxiety Depression History of thoracic outlet syndrome left- LUE limb restriction Hyperlipidemia Hypertension Kidney stones Obesity Osteoarthritis Restless leg syndrome Surgical History H/O total hysterectomy History of bilateral tubal ligation History of bladder surgery BLADDER TACK History of carpal tunnel release RT/LEFT History of section X 3 History of colonoscopy History of eyelid surgery WATER BLISTERS REMOVED History of tonsillectomy and adenoidectomy History of tooth extraction History of total knee replacement RIGHT Family History Mother Family history of diabetes mellitus Father Family history of diabetes mellitus Grandfather Family history of diabetes mellitus Grandmother Family history of diabetes mellitus Brother Family history of diabetes mellitus Social History Preferred Language: Indonesian Communication Ability: Effective Oncology Rn Required: No Beliefs That Will Affect Care: None Current Living Situation: Spouse Other Information That Helps Us Care for You: No Feels Safe at Home: Yes Safety Concerns: Feels Safe At This Time Smoking Status: Never smoker Do You Dip or Chew Tobacco: No ; Second Hand Exposure: No ; Tobacco Cessation Education Requested by Patient: No Hx Alcohol Use: No Hx Substance Use: No Review of Systems Review of Systems: All systems reviewed & are unremarkable except as noted in HPI & below Constitutional: as per Subjective / HPI Physical Exam Physical Exam: LLE NVSI +EHL/FHL/TA/GS SILT grossly, +2 DP pulse, compartments soft NT, limited painful ROM, 3-115 degrees of flexion, +crepitus. Constitutional: WD/WN, vitals as above Eyes: PERRL, conjunctivae normal, anicteric sclerae ENMT: external ear and nose normal, oropharynx normal Neck: trachea midline, no thyromegaly Respiratory: normal respiratory effort, lungs clear to auscultation Cardiovascular: RRR, no murmur, no edema Gastrointestinal (Abdomen): normal bowel sounds, soft, nontender, no hepatosplenomegaly Musculoskeletal: no cyanosis or clubbing, extremities motor strength 5/5 Skin: no rashes, warm and dry Neurologic: patellar DTR's 2+ bilat, sensation intact Psychiatric: A+Ox3, euthymic affect Lymphatic: no cervical or axillary lymphadenopathy Results & Data Diagnostic Findings Multiple views of the knee demonstrates severe tricompartmental DJD with complete loss of the medial and moderate loss of patellofemoral joint space. +osteophytes, +sclerosis, +subchondral cysts.
[~2018-11-26 06:42] MED LIST changes: -ACET-24 PO; +ACETAMINOPHEN 500 MG TAB PO SCH; -ASPEC81 PO; -ATOR-22 PO; +BUPIVACAINE 0.5 % 5 MG/1 ML PF 10ML VIAL ONE; -CITA10TA8 PO; -CLB200 PO; +CLINDAMYCIN 600 MG/54 ML BAG IV SCH; +CeleBREX 200 MG CAP PO SCH; +EPINEPHrine INJ 1 MG/ML AMP ONE; +FAMOTIDINE 20 MG TAB PO SCH; +GABAPENTIN 600 MG DOSE PO SCH; -LIDO4PAD3 TOP; -LOSA100T2 PO; +LR 500ML BOLUS, THEN 15ML/HR IV SCH; -MENT4GEL TOP; +METOCLOPRAMIDE HCL 10 MG TABLET PO SCH; -ONDA8TAB6 PO; -OXYSR10 PO; +ROPIVACAINE 0.5% 5 MG/ML 30 ML VIAL ONE; +ROPIVACAINE 0.5% HCL/PF 150 MG, BUPIVACAINE 0.5% MPF 30 ML, EPINEPHrine 30MG/30ML (OR U... INFIL SCH; -RXC5 PO; +TRANEXAMIC ACID 1,000 MG **IV Intra-op IV SCH; +TRANEXAMIC ACID 1,000 MG **IV Pre-op IV SCH; +dexAMETHasone 4 MG TAB PO SCH
[2018-11-26] MEDS ORDERED: BACITRACIN INJ 50,000 UNIT VIAL ONE (06:57)
[2018-11-26] MEDS ORDERED: ORTHO JOINT ANESTHETIC ONE (06:57)
[2018-11-26] MEDS ORDERED: PHENYLEPHRINE 100MCG/ML 5ML SYR ONE ×2 (06:58→11:09)
[2018-11-26] MEDS ORDERED: fentaNYL citrate 100 MCG/2 ML VIAL ONE (06:58)
[2018-11-26] MEDS ORDERED: LIDOCAINE HCL 2% 2 ML VIAL/AMP(20MG/ML) INFIL ONE (06:58)
[2018-11-26] MEDS ORDERED: ePHEDrine sulfate 50 MG/ML SYR ONE (06:58)
[2018-11-26] MEDS ORDERED: PROPOFOL IV EMULSION 10 MG/ML 20 ML VIAL IV ONE ×2 (06:58→10:38)
[2018-11-26] MEDS ORDERED: MIDAZOLAM HCL 1 MG/ML 2ML VIAL ONE ×2 (06:59)
--- NOTE | 2018-11-26 07:06 | History & Physical Bridge Note ---
Date of Service November 26, 2018 History & Physical Bridge Note I have examined the patient, reviewed the History & Physical and in the interval since the performance of the History & Physical I have noted the following changes of clinical significance: no changes noted
[2018-11-26] MEDS ORDERED: LABETALOL HCL IV 5 MG/ML 20ML IV PRN (08:53)
[2018-11-26] MEDS ORDERED: ONDANSETRON INJ 2 MG/ML 2 ML VIAL IV PRN ×2 (08:53→12:51)
[2018-11-26] MEDS ORDERED: MEPERIDINE HCL 25 MG/ML CARP IV PRN (08:53)
[2018-11-26] MEDS ORDERED: fentaNYL citrate 100 MCG/2 ML VIAL IV PRN (08:53)
[2018-11-26] MEDS ORDERED: PHENYLEPHRINE 100MCG/ML 5ML SYR IV PRN (08:53)
[2018-11-26] MEDS ORDERED: ePHEDrine sulfate 50 MG/ML AMP IV PRN (08:53)
[2018-11-26] MEDS ORDERED: ATROPINE SULFATE 0.1 MG/ML 10ML SYR IV PRN (08:53)
[2018-11-26] MEDS ORDERED: HYDROmorphone INJ 1 MG/ML SYRINGE IV PRN (08:53)
--- NOTE | 2018-11-26 10:55 | Post Operative Brief Note ---
Immediate Post Op Note v1 Date of Surgery November 26, 2018 Pre & Post Diagnosis Operation Date: 08/05/18 11:30 <No data on this case meets the specified criteria> Operation Date: 11/26/18 09:25 Pre-Op Diagnosis: Unilateral Primary Osteoarthritis, Left Knee Post-Op Diagnosis: Unilateral Primary Osteoarthritis, Left Knee Procedure Operation Date: 08/05/18 11:30 <No data on this case meets the specified criteria> Operation Date: 11/26/18 09:25 Actual Procedures p Left Total Knee Arthroplasty(Left) - Estuardo Lilly DO Surgeon Estuardo Lilly DO Pulley Worker Bin Hassan Estimated Blood Loss 50 Findings Consistent with Post-Op Diagnosis Fluids 1500 cc LR Specimens proximal tibia and distal femur bone fragments Anesthesia Type Spinal MAC Disposition Disposition: Recovery Room Overlapping Procedure I was present for: the critical portions of procedure. I was immediately available: during the entire case. Back up surgeon: was not required during procedure.
--- NOTE | 2018-11-26 11:13 | Operative Report ---
Post Operative Report Pre & Post Diagnosis Operation Date: 08/05/18 11:30 <No data on this case meets the specified criteria> Operation Date: 11/26/18 09:25 Pre-Op Diagnosis: Unilateral Primary Osteoarthritis, Left Knee Post-Op Diagnosis: Unilateral Primary Osteoarthritis, Left Knee Procedure Operation Date: 08/05/18 11:30 <No data on this case meets the specified criteria> Operation Date: 11/26/18 09:25 Actual Procedures p Left Total Knee Arthroplasty(Left) - Estuardo Lilly DO Surgeon Estuardo Lilly DO Hull Sorter Bin Hassan Estimated Blood Loss 50 Findings Consistent with Post-Op Diagnosis Fluids 1500 cc LR Specimens Proximal tibia and distal femur bone fragment Anesthesia Type Spinal MAC Complications none Disposition Disposition: Recovery Room Indications The patient is a 63-year-old for presents with long history of severe left knee tricompartmental DJD and failed outpatient conservative treatments including NSAIDs, bracing, injections and home walking/exercise program. The patient's symptoms have progressed to the point where it has been difficult to perform normal activities of daily living. I have indicated the patient for a left total knee arthroplasty, the risks and benefits and complications of the procedure include but are not limited to infection bleeding damage to bone, nerves, vessels, surrounding soft tissue, blood clots, loss of function, leg length discrepancy, dislocation, failure of the components, need for additional surgery and . The patient wished to proceed with surgery at this time and informed consent was obtained. Appropriate clearances were obtained. Description of Procedure COMPONENTS USED: Piedad persona knee system: Femur size 7 narrow, Tibia size D tibial articulating surface 10 PS, Patella 29 [place] Following induction of spinal anesthesia, a tourniquet was applied to the proximal aspect of the thigh and the patient's left leg was prepped and draped in the usual sterile manner. A timeout was performed, patient identified and site aster confirmed. Appropriate pre-operative IV antibiotics were given. The limb was exsanguinated with an Esmarch bandage and tourniquet was inflated to 300 mmHg. A longitudinal midline incision was made over the anterior knee. Subcutaneous tissue was sharply dissected down to fascia. Electrocautery was used for hemostasis. Next a parapatellar arthrotomy was performed. Patella was everted and the knee was flexed. A Renteria retractor was used to expose the synovium above on the anterior aspect of the femur and removed down to bone. Next, the anterior fat pad was removed to aid in visualization. The medial face of the tibia was cleared of soft tissue first with a Bovie and a ireland elevator. This tissue was retracted posteriorly using a blunt Hohmann. Next, the extra-medullary tibial cutting guide was placed to the anterior aspect of the tibia. The tibia resection level was set taking 2mm from the defective tibial condyle. Resection depth was once again confirmed with kory wing. The medial and lateral collateral ligament was protected with two Hohmann retractors. The tibia guide was removed and proximal tibial bone fragment removed utilizing straight osteotome, electrocautery and Cecilia. Next, the distal femur intramedullary canal was accessed utilizing the step drill. The intramedullary distal femur cutting guide was placed into the canal and pinned into place. The distal femur was cut on the 5+0 degree setting. Next the cutting guide was removed and the femur was sized. Care was taken to ensure appropriate absorption operator all rotation and 3 degree holes were drilled. A size 7 4-in-1 cutting block was placed on the distal end of the femur and secured into place with two short headed screws. Two bent Hohmann retractors were placed to protect the medial and lateral collateral ligaments. The oscillating saw was used to cut anterior, posterior, anterior chamfer and posterior chamfer. The four and one cutting block was removed and bone fragments excised. Laminar production department supervisor was placed laterally and the ACL and PCL were removed followed by the medial meniscus and posterior medial osteophytes. Aquamantys was utilized for any posterior medial bleeders and Orthomix injected into the posterior medial capsule. A laminar production department supervisor was then placed in the medial compartment and the lateral meniscus and posterior osteophytes were removed. Aquamantys was utilized for any posterior lateral bleeders and Orthomix injected into the posterior lateral capsule. Next, drop bianca and spacer block were placed with the leg in flexion and extension to assess alignment and flexion/extension gaps. Next, the proximal tibia was assessed and two bent Hohmans were placed medial and lateral to aid in visualization. The appropriate tibia size and rotation was selected and a size D tibial plate was pinned into place with appropriate rotation. Preparation of the tibia was completed utilizing the matching tibial drill and broach. I then turned my attention back to the distal femur in a trial femoral component was impacted into place. Appropriate femoral width was assessed and selected. Next the femur PS box cut guide was placed and cut made with the reciprocal saw and the PS box provisional placed. A trial size 10 PS tibia articular tray was placed and varus-valgus balance assessed in 0 degrees of extension and 30, 60 and 90 degrees of flexion. A final tibial articular surface size 10 PS was chosen. Assess was gained to the patella and caliper utilized to measure width. The patella reamer was utilized and remaining bone removed with oscillating saw. A size 29 patella button was selected and the patella pegs drilled. Trial patella button was placed and tracking was assessed. The knee was found to be well balanced, well aligned with excellent patella tracking. The trials were removed and final components were obtained and assembled. The knee was irrigated copiously with sterile saline solution mixed with bacitracin. Access to the proximal tibia was once again obtained utilizing to the Hohmans and the proximal tibia and distal femur were dried with lap sponges. The final components were cemented into place and all excess cement was removed. A trial tibial articular surface was placed while cemented hardened. Knee stability was once again assessed and the final component inserted. A Betadine soak was performed. After 3 minutes, the hip was once more irrigated with copious steril e saline solution with bacitracin. The knee was injected with the remaining Orthomix which includes a combination of Ropivicaine 0.5% 150mg, Bupivicaine 0.5%/Epinephrine 1:200,000 30ml, Toradol 30mg, Dexamethasone 4mg, Ketamine 10mg, Clonidine 100mcg and NSS 30ml solution. The capsulotomy was closed with #1 Vicryl followed by subcutaneous closure with 2-0 Vicryl suture and a 3-0 V-lock suture. Skin closure was performed using Prineo dressing followed by Rhett, 4 x 4s and iván wrap. Tourniquet was deflated at [ ] minutes. The patient tolerated the procedure well and was taken to the PACU in stable condition. Due to the complex nature of the procedure, the entire surgery was performed with the operational assistance of Bin Hassan PA-C. The operations administrative assistant, under direct supervision, was involved in the actual performance of all aspects of the surgical procedure including patient positioning, hemostasis, tissue retraction, instrument management and wound closure. I attest to the content of the Intraoperative Record and any orders documented therein. Any exceptions are noted below.
--- NOTE | 2018-11-26 12:05 | XRay Report ---
LEFT KNEE 2 VIEWS History: Left total knee arthroplasty. Degenerative arthritis. Postop. FINDINGS: The patient is status post a left total knee arthroplasty. The hardware is intact. No fract ure or dislocation. IMPRESSION: Left total knee arthroplasty. No evidence for hardware complication. Electronically signed by: River Pennington M.D. 11/26/2018 12:03 PM
--- NOTE | 2018-11-26 12:36 | Anesthesiology Progress Note ---
Date of Service November 26, 2018 Anesthesia Post Procedure Vital Signs Vital Signs: Temp Pulse Pulse Resp BP Pulse Ox 11/26/18 12:10 86 12 110/72 95 11/26/18 12:00 36.5 C 90 13 108/76 95 11/26/18 11:50 88 14 108/80 98 11/26/18 11:40 89 14 115/62 97 11/26/18 11:32 36.8 C 92 H 14 121/66 96 11/26/18 07:34 36.5 C 68 20 145/90 H 97 Transfer of Care Handoff Completed per policy Notes Mental Status: alert / awake / arousable Patient Amnestic to Procedure: Yes Nausea / Vomiting: adequately controlled Pain: adequately controlled Airway Patency, RR, SpO2: stable & adequate BP & HR: stable & adequate Hydration State: stable & adequate Neuraxial Anesthesia: was administered and sensory block is resolving Anesthetic Complications: no major complications apparent and Pt Satisfied with anesthetic care
[2018-11-26] MEDS ORDERED: NALOXONE HCL 0.4 MG/1 ML VIAL/CARP IV PRN (12:51)
[2018-11-26] MEDS ORDERED: HYDROmorphone INJ 0.5 MG/0.5 ML SYR IV PRN (12:51)
[2018-11-26] MEDS ORDERED: bisacodyL 10 MG SUPP PR PRN (12:51)
[2018-11-26] MEDS ORDERED: MAGNESIUM HYDROXIDE SUSP 30 ML UDC PO PRN (12:51)
[2018-11-26] MEDS ORDERED: METOCLOPRAMIDE HCL INJ 5 MG/ML 2 ML VIAL IV PRN (12:51)
[2018-11-26] MEDS: SODIUM CHLORIDE 0.9% 1000ML 1,000 ML IV SCH ×2 (13:38→23:40)
[2018-11-26] MEDS: ACETAMINOPHEN 500 MG TAB PO SCH ×2 (13:38→21:59)
--- NOTE | 2018-11-26 16:15 | Orthopedic Progress Note ---
Date of Service November 26, 2018 Assessment & Plan (1) Degenerative joint disease of left knee: s/p L TKA -Clinda x 24 -DVT ppx: SCDs, TEDs, ASA BID -WBAT LLE -PT/OT PO XR demonstrates well aligned well fixed orthopedic prothesis without fracture/dislocation -am labs -DC planning Subjective Post Operative Progress Note Patient seen sitting up in bed, comfortable, denies complaints, pain well controlled, no acute issues. Review of Systems Review of Systems: All systems reviewed & are unremarkable except as noted in HPI & below Constitutional: as per Subjective / HPI Physical Exam Physical Exam: LLE NVSI +EHL/FHL/TA/GS SILT grossly, +2 DP pulse, compartments soft NT, dressing cdi. Constitutional: WD/WN, vitals as above Results & Data Vital Signs (Past 12 Hours) Vital Signs Temp Pulse Pulse Resp BP Pulse Ox 11/26/18 15:32 36.4 C L 96 H 16 118/72 96 11/26/18 14:41 95 H 18 104/69 95 11/26/18 13:27 92 H 18 114/77 96 11/26/18 12:59 95 H 16 119/82 95 11/26/18 12:30 36.8 C 88 16 109/71 95 11/26/18 12:10 86 12 110/72 95 11/26/18 12:00 36.5 C 90 13 108/76 95 11/26/18 11:50 88 14 108/80 98 11/26/18 11:40 89 14 115/62 97 11/26/18 11:32 36.8 C 92 H 14 121/66 96 11/26/18 07:34 36.5 C 68 20 145/90 H 97
[2018-11-26] MEDS: KETOROLAC TROMETHAMINE 15 MG/ML VIAL IV SCH ×2 (17:11→21:59)
[2018-11-26] MEDS: CLINDAMYCIN 600 MG in DEXTROSE 5% 50 ML IV SCH (18:40)
[2018-11-26] MEDS: DOCUSATE SODIUM 100 MG CAP PO SCH (20:45)
[2018-11-26] MEDS: OXYCODONE HCL IR 5 MG TAB (IMMEDIATE RELEASE) PO PRN (20:46)
[2018-11-26] MEDS ORDERED: hydroCHLOROthiazide 25 MG TAB PO SCH (21:00)
[2018-11-26] MEDS ORDERED: CITALOPRAM 20 MG TAB PO SCH (21:00)
[2018-11-26] MEDS ORDERED: SENNA 8.6 MG TAB PO SCH (21:00)
[2018-11-26] MEDS ORDERED: ATORVASTATIN 20 MG TAB PO SCH (21:00)
[2018-11-26] MEDS ORDERED: LOSARTAN POTASSIUM 50 MG TAB PO SCH (21:00)
[2018-11-27] MEDS: CLINDAMYCIN 600 MG in DEXTROSE 5% 50 ML IV SCH (03:00)
[2018-11-27] MEDS: KETOROLAC TROMETHAMINE 15 MG/ML VIAL IV SCH ×2 (03:09→10:11)
[2018-11-27] MEDS: ACETAMINOPHEN 500 MG TAB PO SCH ×2 (05:41→13:47)
[2018-11-27 06:02] LABS: Hematocrit (blood only) 35.4 % (37-47); Mean Corpuscular Hemoglobin 30.8 pg (25-34); Mean Corpuscular Hgb Conc 33.9 g/dL (32-36); Mean Corpuscular Volume 90.8 fL (80-100); Mean Platelet Volume 10.4 fL (7.4-10.4); Platelet Count 173 K/uL (130-400); RDW Coefficient of Variation 12.7 % (11.5-14.5); RDW Standard Deviation 41.9 fL (36.4-46.3); White Blood Count 13.87 K/uL (4.8-10.8)
[2018-11-27 06:35] LABS: BUN Creatinine Ratio 19.5 (10-20); Calcium 8.7 mg/dl (8.5-10.1); Est GFR (African American) 79.4; Est GFR (Non-African American) 68.5
[2018-11-27] MEDS: DOCUSATE SODIUM 100 MG CAP PO SCH (08:32)
--- NOTE | 2018-11-27 08:51 | Orthopedic Progress Note ---
Date of Service November 27, 2018 Assessment & Plan (1) Degenerative joint disease of left knee: s/p L TKA POD#1 -Clinda x 24 -DVT ppx: SCDs, TEDs, ASA BID -WBAT LLE -PT/OT PO XR demonstrates well aligned well fixed orthopedic prothesis without fracture/dislocation -am labs - hgb 12.0 -DC planning - home with HH Subjective Post Operative Progress Note Patient seen sitting up in bed, comfortable, denies complaints, pain well controlled, no acute issues. Denies F/C/N/V/SOP/CP Review of Systems Review of Systems: All systems reviewed & are unremarkable except as noted in HPI & below Constitutional: as per Subjective / HPI Physical Exam Physical Exam: LLE NVSI +EHL/FHL/TA/GS SILT grossly, +2 DP pulse, compartments soft NT, dressing cdi. Constitutional: WD/WN, vitals as above Results & Data Vital Signs (Past 12 Hours) Vital Signs Temp Pulse Resp BP Pulse Ox 11/27/18 07:26 36.5 C 68 18 103/70 97 11/27/18 03:12 36.6 C 73 16 105/70 95 11/26/18 23:09 36.7 C 93 H 16 102/67 94 Laboratory Results 11/27/18 11/27/18 11/26/18 Range/Units 05:30 05:30 07:13 WBC 13.87 H (4.8-10.8) K/uL RBC 3.90 L (4.2-5.4) M/uL Hgb 12.0 (12.0-16.0) g/dL Hct 35.4 L (37-47) % MCV 90.8 (80-100) fL MCH 30.8 (25-34) pg MCHC 33.9 (32-36) g/dL RDW Std Deviation 41.9 (36.4-46.3) fL RDW Coeff of Damián 12.7 (11.5-14.5) % Plt Count 173 (130-400) K/uL MPV 10.4 (7.4-10.4) fL Sodium 139 (136-145) mmol/L Potassium 4.0 (3.5-5.1) mmol/L Chloride 106 (98-107) mmol/L Carbon Dioxide 26 (21-32) mmol/L Anion Gap 7.0 (3-11) BUN 17 (7-18) mg/dl Creatinine 0.89 (0.6-1.2) mg/dl Est Cr Clr Drug Dosing 69.0 ml/min Est GFR ( Amer) 79.4 Est GFR (Non-Af Amer) 68.5 BUN/Creatinine Ratio 19.5 (10-20) Glucose 145 H (70-99) mg/dl Calcium 8.7 (8.5-10.1) mg/dl Blood Type AB Positive Antibody Screen NEGATIVE Crossmatch See Detail
[2018-11-27] MEDS ORDERED: ASPIRIN 325 MG ECTAB PO SCH (09:00)
[2018-11-27] MEDS ORDERED: MULTIVITAMIN TAB PO SCH (09:00)
[2018-11-27] MEDS ORDERED: MAGNESIUM OXIDE 400 MG TAB PO SCH (09:00)
[2018-11-27] MEDS: OXYCODONE HCL IR 5 MG TAB (IMMEDIATE RELEASE) PO PRN ×2 (10:11→13:48)
--- NOTE | 2018-11-27 19:43 | Discharge Summary ---
Date of Service November 27, 2018 Admission HPI Per Admitting Provider The patient is a 63 year old female who presents with complaints of severe left knee pain and DJD. The patient has failed outpatient conservative treatments to this point which included NSAIDs, IA corticosteroid injection, bracing, home exercise/walking program. The patient's pain and limited function have progressed to the point where they severely hinder their activities of daily living and they no longer tolerate exercise programs. They are requesting to proceed with total knee replacement surgery. Principal Diagnosis Left total knee replacement Discharge Exam LLE NVSI +EHL/FHL/TA/GS SILT grossly, +2 DP pulse, compartments soft NT, dressing cdi. Constitutional WD/WN, vitals as above Discharge Data Allergies Allergy/AdvReac Type Severity Reaction Status Date / Time Penicillins Allergy Mild RASH and Verified 11/26/18 07:08 ITCHING Consultations 11/26/18 12:51 Consult Case Management - Discharge Planning Routine Procedures Performed Operation Date: 08/05/18 11:30 <No data on this case meets the specified criteria> Operation Date: 11/26/18 09:25 Actual Procedures p Left Total Knee Arthroplasty(Left) - Estuardo Lilly DO Ordered Studies 11/26/18 05:00 US - OR guided needle placemen Routine Hospital Course (1) Degenerative joint disease of left knee: The patient is a 63 -year-old female who presents with long standing history of severe left knee DJD and failed outpatient conservative treatments including NSAIDs, bracing, injections and home walking/exercise program. The patient's symptoms have progressed to the point where it has been difficult to perform even normal activities of daily living. I indicated the patient for a left total knee arthroplasty, the risks, benefits and complications of the procedure include but not limited to infection, bleeding, damage to bone, nerves, vessels, surrounding soft tissue, may develop blood clots, loss of function, leg length discrepancy, dislocation, failure of the components, loosening of the components, the need for additional surgery and . The patient wished to proceed with surgery at this time and informed consent was obtained. Hospital Course: On 11/26/18 the patient was taken to the operating room, adequate anesthesia administered and underwent a left total knee arthroplasty. The patient tolerated the procedure well and was taken to the PACU in stable condition. Post-operatively the patient was started on a DVT ppx medication and given appropriate IV antibiotics. Consults were placed to physical therapy, occupational therapy and case management. On POD#1, the patient did well overnight and their pain was well controlled. Labs were drawn and the Hgb was 12.0. The patient progressed well with PT. Dressings were changed at this time and the incision was clean, dry and intact. The patients hospital stay was relatively uneventful and they were deemed stable by the orthopedic team and consultants to be discharged home with HH on 11/27/18. Discharge Instructions: Upon discharge the patient may weight bear as tolerates through their operative extremity. They were instructed to keep the incision clean and dry at all times. The patient may shower but should not submerge the incision, avoid bathing, pools and hot tubes. The patient was given a script for pain medication and should take as instructed. The patient was given a script for DVT ppx ASA 325mg BID and should take as directed. The patient was instructed to not drive or travel for long distances until cleared to do so. If the patient develops any symptoms of fevers, chills, nausea, vomiting, increased redness, swelling, pain or drainage from the surgical site, they should notify t he office and/or proceed to the nearest emergency room. The patient should follow up in 10-14 days after surgery for their routine post-operative follow-up appointment and should call the office to confirm the date and time. s/p L TKA POD#1 -Clinda x 24 -DVT ppx: SCDs, TEDs, ASA BID -WBAT LLE -PT/OT PO XR demonstrates well aligned well fixed orthopedic prothesis without fracture/dislocation -am labs - hgb 12.0 -DC planning - home with HH Total Time Total Time Spent Total Time Spent (In Minutes): 30 minutes Total Time Includes: Examination of the Patient, Discharge Planning, Medication Reconciliation and Communication With Other Providers Discharge Plan Discharge Items Patient Disposition: Home - Home Health Services Reason For Visit: Unilateral Primary Osteoarthritis, Left Knee Discharge Diagnosis: Left total knee replacement Condition on Discharge: Good Activity: Per Instructions section Lifting: Wait until after follow-up appointment Bathing: Keep incision dry Bathing Comment: No bathing, pools or hot tubs Sexual Activity: Wait until after follow-up appointment Exercise/Sports: Wait until after follow-up appointment Driving/Machine Use: No driving till cleared by your surgeon Weightbearing: Left weightbearing Non-emergency contact: Primary Care Provider and Surgeon Call non-emergency contact if: you have any medication questions, your symptoms worsen, your pain is not controlled, your pain is worsening, your pain is unusual for you, your pain is concerning for you, you have a fever, your temperature is above 101, your wound has increased redness, your wound has increased drainage and your wound pain has increased Follow-up/Referrals: Joey Milian MD [Primary Care Provider] - Diet: Regular Addtl Attending Provider Instructions: ACTIVITY RECOMMENDATIONS: SELF CARE INSTRUCTIONS AFTER TOTAL KNEE REPLACEMENT A. You may need to continue a physical therapy program after discharge from the hospital. There are several options available to you. Your doctor will assist you in selecting the best one for you. 1. An out-patient facility 2 to 3 times a week for therapy or home therapy. 2. Continue working on all exercises taught to you in the hospital. Your goals should be to increase bending of your knee to 90 degrees and beyond and to fully straighten your knee. B. You may progress at your own pace from walking with a walker or crutches to a cane; then to no assistive devices. C. Make walking a part of your daily routine. Be up as much as comfortable with rest periods throughout the day. Rest with leg elevation is very important. Use the ice wrap frequently for the first 3-4 weeks. D. There are no restrictions on activities. You may ride in a car, shop, participate in student life vice president and all social activities. E. Wear the long elastic stockings (NELSON hose) 20 hours a day for 2 weeks after surgery. They can be removed several times a day for laundering and for a bath. F. You may shower, no tub baths until cleared by your doctor. SPECIAL CARE INSTRUCTIONS: VERY IMPORTANT TO READ AND REVIEW A. There are a few signs you need to watch for after you are home. Call [facility] if you notice any of the followin. Increased severe knee pain. Some pain is expected especially when you exercise. 2. Increased swelling in your leg or knee; pain or swelling of the calf muscle in either lower leg. 3. Any fluid drainage from the incision. 4. Shortness of breath or chest pain. B. Please call [facility] at if you have any concerns or questions about your operation or recovery. The doctor or his nurse will return your call promptly. C. You must take antibiotics before dental work, bladder, bowel or other surgery. Your doctor will provide you with a permanent care to carry describing this precaution. IMPORTANT: * REMEMBER TO TAKE ASPIRIN, 325 MG, TWICE DAILY FOR 4 WEEKS UNLESS OTHERWISE DIRECTED. THIS IS YOUR BLOOD THINNER. * HIGH RISK PATIENTS MAY BE PRESCRIBED A STRONGER BLOOD THINNER. THIS WILL BE PROVIDED AT DISCHARGE. * CALL IF INCREASED PAIN, REDNESS, DRAINAGE OR FEVER GREATER THAT 101. * WEAR NELSON HOSE 20 HOURS PER DAY FOR 2 WEEKS. *DERMABOND Prineo- This is a mesh tape dressing that is covered with glue. It should remain in place until the incision is properly healed, usually 10-14 days. This dressing is designed to naturally slough off. You may trim the excess mesh tape as it peels off. Incision may be briefly wet in a shower. Dry immediately by blotting with a clean, dry towel. Do not bath or swim until instructed by your doctor. Do not scratch, rub, or pick at the dressing. Do not apply any topical ointments or lotions until dressing is completely removed and/or instructed by your doctor. There may be a small piece of suture material at one end of your incision. Do not pull or trim this. If it is bothersome or catching on clothing, you may cover it with a band-aid. THIS WILL REMAIN ON YOUR INCISION FOR 7 DAYS, THEN CAN BE REMOVED. IF INCISION IS LEAKING THROUGH DRESSING, CALL THE OFFICE . FOLLOW UP VISIT: If appointment is not already scheduled: Please call [facility] to make a follow-up appointment for 2 weeks after your surgery at . Pending Studies at Discharge: No Stand-Alone Forms: My [facility] [employer], Opioid Pain Management Medications and DC Order Prescriptions: New acetaminophen [Tylenol Extra Strength] 500 mg Tablet 1,000 mg PO Q8 PRN (Reason: pain and/or fever) Qty: 90 RF: 0 aspirin 325 mg Tablet,Delayed Release (Dr/Ec) 325 mg PO BID Qty: 56 RF: 0 oxycodone 5 mg Tablet 5 mg PO Q6H MDD 6 tabs PRN (Reason: pain) Qty: 30 RF: 0 sennosides [Senokot] 8.6 mg Tablet 17.2 mg PO HS PRN (Reason: constipation) Qty: 28 RF: 0 Continued atorvastatin 20 mg Tablet 20 mg PO HS RF: 0 citalopram 10 mg Tablet 10 mg PO HS RF: 0 magnesium 250 mg Tablet 250 mg PO 3XWK RF: 0 losartan-hydrochlorothiazide 100-12.5 mg Tablet 1 tab PO HS RF: 0 Discharge Orders: Discharge Order (Routine); Ordered 11/27/18 Ordered By: Karl Morrell/Other Patient Handouts: Replacement Knee Total Admission Data Admit Date/Time: 11/26/18 11:36 Attending Provider: Estuardo Lilly Admit Provider: Estuardo Lilly Primary Care Provider: Joey Milian Other Interventions: Discharge Summary Assessment (RN) Last Done: 11/27/18 15:45 DC Date/Time DO NOT enter until pt leaves facility: 11/27/18 17:19
[2018-11-27] MEDS ORDERED: CeleBREX 200 MG CAP PO SCH (21:00)
== END 2018-11-27 17:19 | disposition home health service (06) | DRG 470 ==
LOC: ASU 06:42 → 3E 11:36